=== PATIENT | female | born 1945 | race African-American/Black ===

== ENCOUNTER → 2016-11-29 | Outpatient (CLI) | payer OTHER ==
--- NOTE | 2016-11-29 15:23 | RAD ---
DATE: 11/29/2016 EXAM: MAMMO [facility] SCREENING BILATERAL Bilateral digital screening mammography to include digital breast tomosynthesis (3D mammography) HISTORY: Screening study. COMPARISON: None. This study was interpreted with the benefit of Computerized Aided Detection (CAD). FINDINGS: Digital MLO and CC mammograms of both breasts were obtained. Additionally digital breast tomosynthesis (3D mammography) images of both breasts in the MLO and CC projections were performed. No previous studies are available for comparison. The breast parenchyma is composed of scattered fibroglandular densities which can obscure a lesion on mammography (breast density code B). No spiculated mass is seen. No malignant appearing calcification or area of architectural distortion is noted. Digital breast tomosynthesis images demonstrate no spiculated mass or malignant appearing calcification. IMPRESSION: BI-RADS Category 1, negative. There is no mammographic evidence of malignancy. Routine yearly screening mammography is recommended for follow-up. BI-RADS CATEGORY: 1 NEGATIVE RECOMMENDED FOLLOW-UP: 12M 12 MONTH FOLLOW-UP PQRS compliance statement: Patient information was entered into a reminder system with a target due date 11/29/2017 for the next mammogram. Mammography is a sensitive method for finding small breast cancers, but it does not detect them all and is not a substitute for careful clinical examination. A negative mammogram does not negate a clinically suspicious finding and should not result in delay in biopsying a clinically suspicious abnormality. "Our facility is accredited by the [employer] Mammography Program."
--- NOTE | 2016-11-29 15:28 | KCIC ---
EXAM: Dual energy x-ray absorptiometry (DEXA). HISTORY: Postmenopausal female presents for osteoporosis screening. COMPARISON: None. TECHNIQUE: Dual energy x-ray absorptiometry of the lumbar spine and left hip was performed. Calculation of bone mineral density based on standard deviations above or below the expected young adult normal value (T-score) was completed. FINDINGS: The average bone mineral density in the 1st through 4th lumbar vertebrae is 1.366 g/cmxcm, corresponding with a T-score of 2.9. The average total bone mineral density in the left hip is 0.956 g/cmxcm, corresponding with a T-score of 0.1. IMPRESSION: Normal bone mineral density. Note: Definitions established by the World Health Organization: 1. Normal: T-score is -1.0 or above. 2. Osteopenia: T-score is between -1.0 and -2.5 . 3. Osteoporosis: T-score is -2.5 or below. Electronically signed by: Elisha Brown MD (11/29/2016 3:25 PM) [id number]
== END | disposition home or self-care (01) ==
LOC: KCIC MAMMO 14:09
PROVIDERS: ATTEND Nurse Practitioner Family
DX: Z12.31 Encounter for screening mammogram for malignant neoplasm of breast (principal); Z13.820 Encounter for screening for osteoporosis; N95.9 Unspecified menopausal and perimenopausal disorder; M85.88 Other specified disorders of bone density and structure, other site
CPT/HCPCS: 77063; 77080; G0202; 77067

== ENCOUNTER → 2019-12-03 | Outpatient (CLI) | payer OTHER ==
--- NOTE | 2019-12-03 19:51 | KCIC ---
EXAM: Frontal and lateral views of the mandible submitted for evaluation.. DATE: 12/03/2019 12:00 AM CLINICAL INDICATION: Reason: JAW CLOSURE ABNORMALITY X'S 3 WEEKS, NO HALFWAY MEDS/NO INJURY / Spl. Instructions: / History: COMPARISON: None. FINDINGS/ IMPRESSION: Markedly suboptimal projections, including overlap from the patient's shoulders significantly limits evaluation. Within these constraints, no obvious fracture or dislocation although borderline nondiagnostic. Further evaluation with CT would likely provide additional details. Electronically signed by: Mango Downing MD (12/03/2019 7:48 PM) [facility]
== END | disposition home or self-care (01) ==
LOC: KCIC 10:18
PROVIDERS: ATTEND Family Medicine
DX: M26.51 Abnormal jaw closure (principal)
CPT/HCPCS: 70110